=== PATIENT | female | born 1955 | race Two or more races ===

== ENCOUNTER 2018-09-18 07:26 | Inpatient (IN) | payer OTHER ==
[~2018-09-18] VITALS: Ht 157.5 cm; Wt 68.5 kg
[2018-09-18] VITALS (11 sets, daily range): BP systolic 129–154; BP diastolic 73–96
--- NOTE | 2018-09-18 08:00 | NUR ---
MS/RN - Admission Received a direct admit for elective surgery right total knee arthroplasty with Dr. Gifford today. Patient is A/O x 4, denies pain at this time, no apparent distress, stable on room air. Patient oriented to room and use of call light. Patient is ambulatory with min assist. Skin is intact, refused photo to be taken. All belongings accounted, eyeglasses, cellphone and powerhouse oiler at bedside and the rest of the belongings were sent home with son Car. Inserted PIV on the RFA g22 with good blood return, flushed well. Pre-op teachings given to patient and she verbalized understanding. Patient NPO since yesterday at 10:00 PM. Plan of care discussed with patient and family. Fall precautions initiated. Will continue to monitor closely.
[2018-09-18] MEDS ORDERED: CELECOXIB 100 MG CAPSULE PO ONE (09:00)
[2018-09-18] MEDS ORDERED: oxyCODONE HCL SR 10MG TAB.SR.12H PO ONE ×2 (09:00→09:30)
[2018-09-18] MEDS ORDERED: ACETAMINOPHEN 325 MG TABLET PO ONE (09:00)
--- NOTE | 2018-09-18 09:35 | NUR ---
MS/RN - Notes Patient sent to OR for right total knee arthroplasty, pre-op medications given as ordered, pre-procedure checklist completed, consent in the chart. Saline lock on the RFA is patent and intact. Patient endorsed accordingly.
[2018-09-18] MEDS ORDERED: BACITRACIN 50000 UNITS/VIAL ONE (09:42)
[2018-09-18] MEDS ORDERED: TRANEXAMIC ACID 3,000 MG in SODIUM CHLORIDE IRRIG SOLUTION 70 ML IR ONE (10:00)
[2018-09-18] MEDS ORDERED: FENTANYL PF 100MCG/2ML AMPUL ONE (10:14)
[2018-09-18] MEDS ORDERED: LOSA25TA27 PO (10:16)
[2018-09-18] MEDS ORDERED: PANT40TA4 PO (10:16)
[2018-09-18] MEDS ORDERED: TRAZ-182 PO (10:16)
[2018-09-18] MEDS ORDERED: LORA1TAB PO (10:16)
[2018-09-18] MEDS ORDERED: HYDROMORPHONE INJ 2 MG/ML DISP.SYRIN ONE (11:50)
[2018-09-18] MEDS: IV LR 1000 ML 1,000 ML IV PRN (12:21)
[2018-09-18] MEDS ORDERED: HYDROCODONE/APAP 5/325MG 1 EACH TABLET PO PRN (12:30)
[2018-09-18] MEDS ORDERED: SENNOSIDES 8.6 MG TABLET PO PRN (12:30)
[2018-09-18] MEDS ORDERED: HYDROMORPHONE 1 MG/1 ML DISP.SYRIN IV PRN (12:30)
[2018-09-18] MEDS ORDERED: DOCUSATE SODIUM 250 MG CAPSULE PO PRN (12:30)
[2018-09-18] MEDS ORDERED: ACETAMINOPHEN 325 MG TABLET PO PRN (12:30)
--- NOTE | 2018-09-18 12:40 | NUR ---
MS/RN - Notes Patient came back from PACU, alert and oriented, denies pain, on oxygen at 2lpm via [place], s/p right total knee arthroplasty, right knee immobilizer and ice pack in place with dressing clean, dry, and intact. All post-op orders noted and carried out. Vital signs monitored per protocol. Will continue with current medical management.
--- NOTE | 2018-09-18 13:45 | NUR ---
MS/RN - PT Eval Seen and evaluated by PT, weight bearing as tolerated, to apply right knee CPM. Patient able to ambulate in the room with walker.
[2018-09-18] MEDS ORDERED: ONDANSETRON HCL/PF 4 MG/2 ML VIAL IV PRN (14:30)
[2018-09-18] MEDS: ANCEF 1 GM/50 ML D5W IV SCH ×2 (17:20)
[2018-09-18] MEDS ORDERED: diphenhydrAMINE HCL 25 MG CAPSULE PO PRN (18:30)
[2018-09-18] MEDS ORDERED: TRAZODONE 50 MG TABLET PO PRN (18:30)
[2018-09-18] MEDS ORDERED: HYDROCODONE/APAP 10/325MG 1 EA TABLET PO PRN (18:30)
[2018-09-18] MEDS ORDERED: BISACODYL SUPP (10 MG) 10 MG/SUPP.RECT SUPP.RECT RC PRN ×2 (18:30→22:00)
[2018-09-18] MEDS ORDERED: LORAZEPAM 1 MG TABLET PO PRN (18:30)
[2018-09-18] MEDS ORDERED: CLONIDINE HCL 0.1 MG TABLET PO PRN (18:30)
[2018-09-18] MEDS ORDERED: MAG HYDROX/AL HYDROX/SIMETH 30 ML UDC PO PRN (18:30)
--- NOTE | 2018-09-18 18:59 | NUR ---
MS/RN - End of shift summary Patient resting comfortably, right knee pain is tolerable, remain afebrile, IVF LR at 75 ml/hr infusing well on the RFA with no signs of infiltration. Patient tolerated CPM with 35 degrees flexion for 1.5 hours, right knee dressing is clean, dry, and intact, ice in place. Will endorse to the night nurse accordingly.
--- NOTE | 2018-09-18 19:10 | NUR ---
RN MS OPENING NOTES RECEIVED PATIENT IN BED AWAKE, ALERT AND ORIENTED X4, RESPIRATIONS EVEN AND UNLABORED WITH EQUAL RISE AND FALL OF CHEST, DENIES ANY PAIN OR DISCOMFORT AT THIS TIME, IV SITE TO RIGHT FA #22G INTACT AND PATENT, IVF RUNNING ORDERED, NO REDNESS , NO INFILTRATION PRESENT, CURRENTLY ON CPM MACHINE AT 35 DEGREE FLEXION , TOLERATING WELL, DRESSING AND SERG BANDAGE TO RLE INTACT CLEAN AND DRY, ORIENTED TO STAFF AND CALL LIGHT AND KEPT WITHIN REACH, SAFETY PRECAUTIONS IN PLACE, LOW BED AND LOCKED, FLUIDS AND BED SIDE COMMODE OFFERED, ALL NEEDS ATTENDED AT THIS TIME REMAINS COMFORTABLE WILL CONTINUE TO MONITOR AND ATTEND TO NEEDS.
[2018-09-18] MEDS: LOSARTAN POTASSIUM 25 MG TABLET PO SCH (21:13)
[2018-09-18] MEDS: FAMOTIDINE (20 MG) 20 MG TABLET PO SCH (21:13)
[2018-09-18] MEDS: MORPHINE SULFATE INJ 4 MG/ML DISP.SYRIN IM PRN (21:15)
--- NOTE | 2018-09-18 21:15 | NUR ---
RN MS NOTES PATIENT COMPLAINT OF PAIN TO RLE 01/18, REQUESTING FOR MORPHINE VS WNL 143/78,92,18,95%. MORPHINE PRN GIVEN ORDERED WILL CONTINUE TO MONITOR FOR EFFECTIVENESS.
[2018-09-18] MEDS ORDERED: ZOLPIDEM TARTRATE 5 MG TABLET PO PRN (22:00)
--- NOTE | 2018-09-18 22:48 | NUR ---
RN MS NOTES PATIENT REQUESTING TO HAVE SLEEP MEDICATION . TRAZODONE OFFERED ORDERED FOR INSOMNIA, PATIENT AGREED TRAZODONE PRN GIVEN ORDERED. BED SIDE COMMODE OFFERED, AT THIS TIME CPM MACHINE REMOVED TOLERATED FOR 4 HOURS. ALL NEEDS ATTENDED AT THIS TIME.
[2018-09-19] MEDS: ANCEF 1 GM/50 ML D5W IV SCH ×2 (02:07)
[2018-09-19] MEDS: IV LR 1000 ML 1,000 ML IV PRN (02:47)
[2018-09-19] MEDS: MORPHINE SULFATE INJ 4 MG/ML DISP.SYRIN IM PRN ×4 (05:43→21:00)
--- NOTE | 2018-09-19 05:43 | NUR ---
RN MS NOTES PATIENT C/O PAIN TO RIGHT LEG 12/18 REQUESTING FOR MORPHINE VS WNL 125/60,84,18,95% MORPHINE PRN GIVEN ORDERED, WILL CONTINUE TO MONITOR FOR EFFECTIVENESS.
--- NOTE | 2018-09-19 06:52 | NUR ---
RN MS NOTES IV SITE TO RIGHT FA NOTED LEAKING, SLIGHT INFILTRATED, NOTED WITH SLIGHT REDNESS, IV SITE REMOVED TOLERATED WELL , SITE CLEANSED ELEVATED AND ICE APPLIED WILL CONTINUE TO MONITOR, NEW IV SITE TO LEFT HAND #22 G INTACT AND PATENT.
--- NOTE | 2018-09-19 07:03 | NUR ---
RN MS CLOSING NOTES PATIENT IN BED AWAKE, ALERT AND ORIENTED X4, RESPIRATIONS EVEN AND UNLABORED WITH EQUAL RISE AND FALL OF CHEST, DENIES ANY PAIN OR DISCOMFORT AT THIS TIME, IV SITE TO LEFT HAND #22G INTACT AND PATENT, IVF RUNNING ORDERED, NO REDNESS , NO INFILTRATION PRESENT, TOLERATING CPM MACHINE FOR 4 HOURS DURING SHIFT, DRESSING AND SERG BANDAGE TO RLE INTACT CLEAN AND DRY, CALL LIGHT KEPT WITHIN REACH, SAFETY PRECAUTIONS IN PLACE, LOW BED AND LOCKED, FLUIDS AND BED SIDE COMMODE OFFERED, TOLERATED BED SIDE COMMODE WELL, ALL NEEDS ATTENDED AT THIS TIME REMAINS COMFORTABLE WILL CONTINUE TO MONITOR AND ATTEND TO NEEDS WILL ENDORSE TO NEXT SHIFT.
[2018-09-19 07:27] LABS: HEMOGLOBIN 10.5 g/dL (11.5-14.8)
--- NOTE | 2018-09-19 07:30 | NUR ---
MS/RN - Assessment Patient awake, A/O x 4, reports mild pain to right knee op site but refused medication for now, afebrile, stable on room air. Skin is intact except for right knee surgical incision POD#1 right total knee arthroplasty with Dr. Gifford. Right knee dressing is c/d/i without drainage, discharge, surrounding erythema, or excess warmth. Skin on BLE is warm to touch, negative calf tenderness, negative for edema, sensation on both lower ext are intact, weight bearing as tolerated on the RLE. IVF LR at 75 ml/hr infusing well on the left hand with no signs of infiltration. Labs reviewed, WNL. Fall precautions maintained. All needs attended and met. Will continue with current plan of care.
[2018-09-19 08:00] VITALS: BP 113/62
[2018-09-19] MEDS: ASPIRIN 325 MG TABLET PO SCH (08:02)
[2018-09-19] MEDS: FAMOTIDINE (20 MG) 20 MG TABLET PO SCH ×2 (08:02→20:59)
--- NOTE | 2018-09-19 11:00 | NUR ---
MS/RN - PT treatment Patient seen by PT for treatment.
--- NOTE | 2018-09-19 11:40 | NUR ---
MS/RN - S/B Hospitalist Seen and examined by Abilio Burnett NP with order to check labs in the morning and DC planning.
--- NOTE | 2018-09-19 12:15 | NUR ---
MS/RN - S/b Dr. Rosario Seen and examined by Dr. Rosario with no new orders. Current pain management is effective per patient.
--- NOTE | 2018-09-19 13:00 | NUR ---
MS/RN - S/b Ortho PA Seen and examined by Justine Brenner PA, dressing change tomorrow.
--- NOTE | 2018-09-19 14:00 | NUR ---
MS/RN - PT treatment Patient seen by PT for treatment.
[2018-09-19 16:00] VITALS: BP 154/56
[2018-09-19] MEDS: DOCUSATE SODIUM 100 MG CAPSULE PO SCH (17:17)
--- NOTE | 2018-09-19 18:22 | NUR ---
MS/RN - End of shift summary Patient resting comfortably, pain much better today, remain afebrile, IVF infusing well on the left hand with no signs of infiltration. Patient able to walk with PT 70 ft-100 ft, tolerated CPM with 35 degrees flexion for 3 hours, per ortho dressing change tomorrow. All needs attended. Will endorse to the night nurse accordingly.
--- NOTE | 2018-09-19 19:34 | NUR ---
RN OPENING NOTES RECEIVED PATIENT AWAKE, RESTING COMFORTABLY. FAMILY IS AT BEDSIDE. PATIENT HAS NO SIGNS OF RESPIRATORY DISTRESS. PATIENT DENIES SHORTNESS OF BREATH. SAFETY PRECAUTIONS IMPLEMENTED. CALL LIGHT WITHIN REACH. WILL CONTINUE TO MONITOR PATIENT THROUGHOUT MY SHIFT.
[2018-09-19 20:00] VITALS: BP 142/62
[2018-09-19 20:34] VITALS: BP 142/62
[2018-09-19] MEDS: LOSARTAN POTASSIUM 25 MG TABLET PO SCH (21:26)
[2018-09-20] MEDS: IV LR 1000 ML 1,000 ML IV PRN (00:13)
[2018-09-20] MEDS: MORPHINE SULFATE INJ 4 MG/ML DISP.SYRIN IM PRN ×3 (04:30→14:26)
--- NOTE | 2018-09-20 06:23 | NUR ---
RN CLOSING NOTES PATIENT IS AWAKE RESTING COMFORTABLY IN BED. A/O X 4. NO SIGNS OF RESPIRATORY DISTRESS. PATIENT DENIES SOB. DENIES PAIN AT THIS TIME. SAFETY PRECAUTIONS IMPLEMENTED. CALL LIGHT WITHIN REACH. ALL NEEDS WERE MET. WILL ENDORSE TO AM RN.
[2018-09-20 06:59] LABS: BASOPHILS % (AUTO) 0.4 % (0.0-2.0); EOSINOPHILS % (AUTO) 0.3 % (0.0-6.0); HEMATOCRIT 27 % (33-45); HEMOGLOBIN 9.4 g/dL (11.5-14.8); LYMPHOCYTES # (AUTO) 2.3 /CMM (0.8-4.8); LYMPHOCYTES % (AUTO) 23.3 % (20.0-44.0); MEAN CORPUSCULAR HGB CONC 34 g/dl (31.0-36.0); MEAN CORPUSCULAR VOLUME 84 fL (82-100); MONOCYTES % (AUTO) 10.7 % (2.0-12.0); NEUTROPHILS # (AUTO) 6.4 /CMM (1.8-8.9); NEUTROPHILS % (AUTO) 65.3 % (43.0-81.0); PLATELET COUNT (AUTO) 155 /CMM (150-450); RED BLOOD CELL COUNT(AUTO) 3.27 MIL/uL (4.0-5.2); WHITE BLOOD COUNT (AUTO) 9.8 K/uL (4.3-11.0)
[2018-09-20 07:14] LABS: CREATININE 0.6 mg/dL (0.6-1.3); POTASSIUM 3.7 mmol/L (3.5-5.1)
[2018-09-20 08:00] VITALS: BP 130/52
[2018-09-20] MEDS: FAMOTIDINE (20 MG) 20 MG TABLET PO SCH (08:27)
[2018-09-20] MEDS: ASPIRIN 325 MG TABLET PO SCH (08:27)
[2018-09-20] MEDS: DOCUSATE SODIUM 100 MG CAPSULE PO SCH (08:27)
--- NOTE | 2018-09-20 14:30 | NUR ---
REPORT CALLED TO KM CUADRA FROM [facility]
--- NOTE | 2018-09-20 15:30 | NUR ---
PATIENT CLEARED FOR DISCHARGE TO ACUTE REHAB BY MD. PATIENT ALERT AND ORIENTED X4, VS ARE STABLE AND WITHIN NORMAL RANGE, PAIN MEDICATION GIVEN PRIOR TO D/C FOR COMFORT. DRESSING CHANGED PRIOR TO D/C AND PICTURE TAKEN AND PLACED TO PATIENT'S CHART. NEW PRESCRIPTION PROVIDED. DISCHARGE INSTRUCTIONS AND EDUCATION PROVIDED TO PATIENT; VERBALIZED UNDERSTANDING. PATIENT WILL F/U WITH SURGEON IN TWO WEEKS. IV ASSESS AND ID WRIST BANDS REMOVED. VALUABLE FORM SIGHED BY PATIENT WELL D/C INSTRUCTIONS. PATIENT PICKED UP BY NON-EMERGENCY TRANSPORTATION, LEFT UNIT VIA GURNEY.
== END 2018-09-20 15:00 | DRG 470 ==
LOC: DS 07:26 → MED 07:28
PROVIDERS: ADMIT Nurse Practitioner Acute Care; ATTEND Nurse Practitioner Acute Care
PROC: 0SRC0J9 Replacement of Right Knee Joint with Synthetic Substitute, Cemented, Open Approach (ICD-10-PCS; principal; 2018-09-18)
DX: M17.11 Unilateral primary osteoarthritis, right knee (principal); K21.9 Gastro-esophageal reflux disease without esophagitis; G47.00 Insomnia, unspecified; F41.9 Anxiety disorder, unspecified; D64.9 Anemia, unspecified; E66.9 Obesity, unspecified; I10 Essential (primary) hypertension; Z68.27 Body mass index [BMI] 27.0-27.9, adult
CPT/HCPCS: 36415; 80048-TC; 85025-TC; 85027-TC; 86850-TC; 87081-TC; 88305-TC; 88311-TC; 97110-TC; 97116-TC; 97530-TC; A4217; A6402; C1713; G0378; J0690; J1100; J1170; J2270; J2405; J2704; J3010; J7060; J7120; L1830